=== PATIENT | male | born 1990 ===

== ENCOUNTER 2022-02-14 16:01 | Emergency (ER) | payer SELFPAY ==
[~2022-02-14] VITALS: Wt 63.6 kg
[2022-02-14 16:16] VITALS: TEMP 98.9
[2022-02-14 16:54] LABS: BASO % 0.5 % (0.0-2.0); EOS # 0.5 K/mm3 (0.0-0.7); EOS % 8.9 % (0.0-4.0); GRAN # 2.7 K/mm3 (1.4-6.5); GRAN % 48.8 % (42.2-75.2); HEMATOCRIT 44.2 % (42.0-52.0); HEMOGLOBIN 14.7 g/dl (13.5-18.0); LYMPH # 1.8 K/mm3 (1.2-3.4); MEAN CELL VOLUME 91 fl (80.0-100.0); MEAN CORPUSCULAR HEMOGLOBIN 30 pg (27-31); MEAN CORPUSCULAR HGB CONC 33 g/dl (33.0-37.0); MEAN PLATELET VOLUME 11.6 fl (7.4-10.4); MONO # 0.5 K/mm3 (0.1-0.6); MONO % 8.6 % (1.7-9.3); PLATELET COUNT 247 K/mm3 (130-400); RED BLOOD COUNT 4.87 M/mm3 (4.20-5.60)
[2022-02-14 17:25] LABS: ALBUMIN 4.1 gm/dL (3.5-5.0); BILIRUBIN,TOTAL 0.4 mg/dL (0.2-1.2); CALCIUM 9.2 mg/dL (8.4-10.2); CREATININE, serum 1.13 mg/dL (0.72-1.25); POTASSIUM 3.4 mmol/L (3.5-4.5); TOTAL PROTEIN 8.3 gm/dL (6.2-8.1)
[2022-02-14 18:08] LABS: COLLECTION METHOD CLEAN CATCH
[2022-02-14 18:13] LABS: PH 7 (5-8); SQUAMOUS EPITHELIAL None Seen /hpf (0-10); URINE APPEARANCE Clear (CLEAR/HAZY); URINE BACTERIA None Seen /hpf (NONE SEEN); URINE BILIRUBIN Negative (NEGATIVE); URINE BLOOD Negative (NEGATIVE); URINE COLOR Straw (YELLOW); URINE GLUCOSE Negative (NEGATIVE); URINE KETONE Negative (NEGATIVE); URINE LEUKOCYTE ESTERASE Negative (NEGATIVE); URINE NITRATE Negative (NEGATIVE); URINE PROTEIN(semi-quant) Negative (NEGATIVE); URINE RBC 0-2 /hpf (0-2); URINE UROBILINOGEN Negative (NEGATIVE)
[2022-02-14 19:15] VITALS: BP 127/84; PULSE 64
== END 2022-02-14 19:18 | disposition home or self-care (01) ==
LOC: COL.ER 16:01
PROVIDERS: Nurse Practitioner Primary Care
DX: R10.13 Epigastric pain (principal); R10.12 Left upper quadrant pain; Z98.890 Other specified postprocedural states
CPT/HCPCS: J1885; Q9967